=== PATIENT | female | born 1965 | race Two or more races ===

== ENCOUNTER 2020-05-13 10:35 | Outpatient (CLI) | payer OTHER | END 2020-05-13 11:52 | disposition home or self-care (01) | LOC: OFIC 805 10:35 → EDBD 10:35 → OFIC 805 11:52 | PROVIDERS: ATTEND Otolaryngology Otology & Neurotology | DX: H90.12 Conductive hearing loss, unilateral, left ear, with unrestricted hearing on the contralateral side (principal); H69.83 Other specified disorders of Eustachian tube, bilateral; H93.8X2 Other specified disorders of left ear ==

== ENCOUNTER 2020-06-01 14:12 | Outpatient (CLI) | payer OTHER | END 2020-06-01 15:27 | disposition home or self-care (01) | LOC: OFIC 805 14:12 | PROVIDERS: ATTEND Otolaryngology Otology & Neurotology | DX: H90.12 Conductive hearing loss, unilateral, left ear, with unrestricted hearing on the contralateral side (principal); H69.83 Other specified disorders of Eustachian tube, bilateral; H93.8X2 Other specified disorders of left ear; H71.92 Unspecified cholesteatoma, left ear ==